=== PATIENT | female | born 1995 | race Caucasian/White ===

== ENCOUNTER 2018-06-18 13:42 | Emergency (ER) | payer OTHER ==
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
[2018-06-18 15:14] VITALS: BP 109/74
== END 2018-06-18 15:10 | disposition home or self-care (01) ==
LOC: ED 13:42
DX: T14.8XXA Other injury of unspecified body region, initial encounter (principal); S43.401A Unspecified sprain of right shoulder joint, initial encounter; V68.5XXA Driver of heavy transport vehicle injured in noncollision transport accident in traffic accident, initial encounter; Y92.9 Unspecified place or not applicable; F31.9 Bipolar disorder, unspecified
CPT/HCPCS: 99282

== ENCOUNTER 2018-12-03 19:01 | Emergency (ER) | payer OTHER ==
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
[2018-12-03 20:28] VITALS: BP 112/54
== END 2018-12-03 20:27 | disposition home or self-care (01) ==
LOC: ED 19:01
DX: S49.92XA Unspecified injury of left shoulder and upper arm, initial encounter (principal); M54.2 Cervicalgia; V43.52XA Car driver injured in collision with other type car in traffic accident, initial encounter; Y92.410 Unspecified street and highway as the place of occurrence of the external cause; Y99.0 Civilian activity done for income or pay
CPT/HCPCS: 99282